=== PATIENT | female | born 1945 | race Caucasian/White ===

== ENCOUNTER 2016-11-29 09:15 | Emergency (ER) | payer MEDICARE, BC ==
[~2016-11-29] VITALS: Ht 162.6 cm; Wt 55.8 kg
[2016-11-29 09:20] VITALS: BP 168/92
[2016-11-29] MEDS ORDERED: CRESTOR10 M1 ORAL (09:26)
[2016-11-29] MEDS ORDERED: Bacitracin Oint UD TOPIC ONE (10:00)
[2016-11-29 10:02] VITALS: BP 157/91
--- NOTE | 2016-11-29 10:22 | Emergency Room Report ---
History of Present Illness General Chief Complaint: Laceration Source: Patient Present Illness HPI 71-year-old female presents ED with laceration to left middle finger. States she actually cut her finger with a knife last night. States the cut was very small but a persistent bleeding so she came to ER. Patient denies any pain. Denies any other injuries. Denies any blood thinners. Tetanus unknown. No other aggravating relieving factors. Denies any other associated symptom Allergies: Coded Allergies: PENICILLINS (Verified Allergy, Unknown, DIARRHEA, RASH, 11/29/16) Patient History Past Medical History: none Past Surgical History: none Pertinent Family History: none Social History: Denies: smoking, alcohol use, drug use Last Menstrual Period: Post Now: No Immunizations: UTD Reviewed Nursing Documentation: PMH: Agreed, PSxH: Agreed Nursing Documentation-PMH Past Medical History: No Stated History Review of Systems All Other Systems: negative except mentioned in HPI Physical Exam Vital Signs Date Time Temp Pulse Resp B/P (MAP) Pulse Ox O2 Delivery O2 Flow Rate FiO2 11/29/16 09:20 98.2 98 19 168/92 98 Room Air Sp02 EP Interpretation: reviewed, normal General Appearance: no apparent distress, alert, GCS 15, non-toxic Head: normocephalic Eyes: bilateral eye normal inspection, bilateral eye PERRL ENT: normal ENT inspection Neck: normal inspection Respiratory: normal inspection Cardiovascular #1: normal inspection Gastrointestinal: normal inspection Rectal: deferred Genitourinary: no CVA tenderness Musculoskeletal: normal inspection Neurologic: alert, oriented x3, responsive, motor strength/tone normal, sensory intact, speech normal Psychiatric: normal inspection Skin: laceration - superficial abrasion to distal aspect of L index finger Lymphatic: normal inspection Medical Decision Making Diagnostic Impression: Primary Impression: Laceration ER Course Hospital Course 71-year-old F presents to ED s/p laceration L middle finger using knife Clinical course Patient placed on stretcher. After initial history and is irrigated. Superficial laceration did not require suturing. Bacitracin and dressing applied patient declined tetanus vaccination. States she will followup with her PMD Diagnosis - laceration Stable and discharged to home. wound Care instructions given. Followup with PMD. Return to ED if any signs of infection develop Last Vital Signs Date Time Temp Pulse Resp B/P (MAP) Pulse Ox O2 Delivery O2 Flow Rate FiO2 11/29/16 10:02 98.2 98 19 157/91 98 Room Air Status: improved Disposition: HOME, SELF-CARE Condition: Stable Referrals: NOT CHOSEN IPA/,REFERRING Patient Instructions: Nonsutured Laceration Care ARI NOLASCO M.D. Nov 29, 2016 10:22
== END 2016-11-29 10:03 | disposition home or self-care (01) ==
LOC: EMR 09:47
DX: S61.213A Laceration without foreign body of left middle finger without damage to nail, initial encounter (principal); W26.0XXA Contact with knife, initial encounter; Y92.89 Other specified places as the place of occurrence of the external cause; Z88.0 Allergy status to penicillin
CPT/HCPCS: 99283

== ENCOUNTER 2017-09-24 23:29 | Emergency (ER) | payer MEDICARE, BC ==
[~2017-09-24] VITALS: Ht 162.6 cm; Wt 57.2 kg
[~2017-09-24 23:29] MED LIST: CRESTOR10 M1 ORAL
[2017-09-24] MEDS ORDERED: Bacitracin Oint UD TOPIC ONE ×2 (23:41→23:45)
[2017-09-24] MEDS ORDERED: MUPIROCIN22 GM TOPIC (23:44)
[2017-09-24] MEDS ORDERED: DOXYCYCLINE MO100 MG ORAL (23:44)
--- NOTE | 2017-09-24 23:45 | Emergency Room Report ---
History of Present Illness General Chief Complaint: Upper Extremity Injury Source: Patient Present Illness [facility] This is a 72-year-old female who is right-hand dominant. She presents with right elbow injury. She had tripped while she was in [place] and had abrasion to her right elbow. This occurred 2 days ago. She said that did not have antibiotic ointment or any anti-septic over there. She's been cleaning it. Complaining of minimal pain. Denies any other complaint. She came in just to make sure was not infected. Allergies: Coded Allergies: PENICILLINS (Verified Allergy, Unknown, DIARRHEA, RASH, 11/29/16) Patient History Past Medical History: see triage record, old chart reviewed Past Surgical History: other Pertinent Family History: none Social History: Denies: smoking Now: No Immunizations: other Reviewed Nursing Documentation: PMH: Agreed; PSxH: Agreed Nursing Documentation-PMH Hx Cardiac Problems: Yes - HIGH CHOLESTEROL Review of Systems Eye: Denies: eye pain, blurred vision ENT: Denies: ear pain, nose congestion, throat swelling Respiratory: Denies: cough, shortness of breath Cardiovascular: Denies: chest pain, palpitations Gastrointestinal: Denies: abdominal pain, diarrhea, nausea, vomiting Musculoskeletal: Denies: back pain, joint pain Skin: Denies: rash Neurological: Denies: headache, numbness Endocrine: Denies: increased thirst, increased urine Hematologic/Lymphatic: Denies: easy bruising All Other Systems: negative except mentioned in HPI Physical Exam Vital Signs Date Time Temp Pulse Resp B/P (MAP) Pulse Ox O2 Delivery O2 Flow Rate FiO2 09/24/17 23:31 98.8 87 16 160/82 Room Air 98.8 vitals with high blood pressure Sp02 EP Interpretation: reviewed, normal General Appearance: well appearing, no apparent distress, alert Head: normocephalic, atraumatic Eyes: bilateral eye PERRL, bilateral eye EOMI ENT: hearing grossly normal, normal pharynx Neck: full range of motion, supple, no meningismus Respiratory: chest non-tender, lungs clear, normal breath sounds Cardiovascular #1: regular rate, rhythm, no murmur Gastrointestinal: normal bowel sounds, non tender, no mass, no organomegaly, no bruit, non-distended Musculoskeletal: back normal, gait/station normal, normal range of motion, other - Right elbow: She has skin abrasion and redness to the proximal tibial area. This measures about 4 x 2 cm. No drainage. No bony tenderness. Full range of motion of elbow and wrist. Sensation normal. Neurologic: alert, oriented x3 Psychiatric: mood/affect normal Skin: warm/dry Medical Decision Making Diagnostic Impression: Primary Impression: Skin abrasion ER Course Patient with skin abrasion to her elbow. Low risk for infection. We'll discharge home. Last Vital Signs Date Time Temp Pulse Resp B/P (MAP) Pulse Ox O2 Delivery O2 Flow Rate FiO2 09/24/17 23:31 98.8 87 16 160/82 Room Air 98.8 Status: improved Disposition: HOME, SELF-CARE Condition: Stable Scripts Doxycycline Monohydrate* (DOXYCYCLINE MONOHYDRATE*) 100 Mg Capsule 100 MG ORAL Q12H, #14 CAP 0 Refills Prov: KORTNEY CROSS M.D. 09/24/17 Mupirocin* (MUPIROCIN*) 22 Gm Oint...g. 1 APPLIC TOPIC THREE TIMES A DAY, #22 GM Prov: KORTNEY CROSS M.D. 09/24/17 Additional Instructions: Keep area clean. Follow-up with your doctor in 7 days for recheck. Return if worse. KORTNEY CROSS M.D. Sep 24, 2017 23:45
[2017-09-24 23:49] VITALS: BP 160/82
== END 2017-09-24 23:49 | disposition home or self-care (01) ==
LOC: EMR 23:42
DX: S50.311A Abrasion of right elbow, initial encounter (principal); W01.0XXA Fall on same level from slipping, tripping and stumbling without subsequent striking against object, initial encounter; Y92.9 Unspecified place or not applicable; E78.00 Pure hypercholesterolemia, unspecified; Z88.0 Allergy status to penicillin
CPT/HCPCS: 99283